=== PATIENT | male | born 1970 | race Caucasian/White ===

== ENCOUNTER → 2021-11-25 09:58 | Outpatient (CLI) | payer BC, SELFPAY ==
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
== END ==
PROVIDERS: PCP Internal Medicine; Visit Provider Internal Medicine
DX: M25.562 Pain in left knee (principal)
CPT/HCPCS: 73562

== ENCOUNTER → 2021-12-07 08:37 | Outpatient (CLI) | payer BC, SELFPAY ==
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
--- NOTE | 2021-12-07 08:42 | XR_ITS ---
FINAL REPORT CLINICAL HISTORY: RULE OUT METAL FOREIGN BODY FOR MRI. rule out metal foreign body. prior hx metal in left eye. FINDINGS: BILATERAL ORBITS: Two views were obtained. There is no acute fracture or dislocation. There is no radiopaque foreign body identified. There is no soft tissue abnormality. IMPRESSION: No acute bony abnormality. No radiopaque foreign body. Reviewed, Interpreted and Dictated by Leo Salinas III, MD Transcribed by Teresa Menendez Authenticated and [facility]
== END ==
PROVIDERS: PCP Internal Medicine; Visit Provider Orthopaedic Surgery
DX: M25.562 Pain in left knee (principal); H05.53 Retained (old) foreign body following penetrating wound of bilateral orbits
CPT/HCPCS: 70200; 73721

== ENCOUNTER → 2021-12-16 09:58 | Outpatient (CLI) | payer BC, SELFPAY ==
[2021-12-16 10:34] LABS: Basophils # 0.1 K/mm3 (0-0.2); Basophils % 1.9 % (0.1-2.0); Eosinophils # 0.2 K/mm3 (0.0-0.4); Eosinophils % 3.2 % (0.1-12.0); Hemoglobin 14.7 g/dL (14.1-18.0); Lymphocytes # 1.6 K/mm3 (0.7-4.5); Lymphocytes % 22.3 % (10-50); Mean Corpuscular HGB Conc 31.3 g/dL (31.8-35.4); Mean Corpuscular Hemoglobin 30.8 pg (27.0-31.2); Mean Corpuscular Volume 98.5 fl (80-94); Mean Platelet Volume 7.3 fl (7.4-10.4); Monocytes # 0.6 K/mm3 (0.1-1.0); Monocytes % 8.3 % (1.7-9.3); Neutrophils # 4.7 K/mm3 (1.8-7.8); Neutrophils % 64.2 % (37.0-80.0); Platelet Count 371 K/mm3 (142-424); Red Blood Count 4.78 M/mm3 (4.60-6.20); White Blood Count 7.3 K/mm3 (4.8-10.8)
[2021-12-16 11:04] LABS: Alanine Aminotransferase 39 U/L (12-78); Albumin Level 4.3 g/dl (3.5-5.0); Albumin/Globulin Ratio 1.7 (1.1-1.8); Alkaline Phosphatase 59 U/L (38-126); Aspartate Amino Transferase 34 U/L (17-59); Blood Urea Nitrogen 12 mg/dl (9-20); Calcium 9.3 mg/dl (8.4-10.2); Carbon Dioxide 27 mmol/L (22.0-30.0); Chloride 105 mmol/L (98-107); Estimated Glomerular Filt Rate 64 ml/min (>60); GFR (African American) 77 ML/MIN (>60); Globulin 2.5 g/dL (1.3-3.2); Glucose 116 mg/dl (74-100); Sodium 140 mmol/L (136-145); Total Protein,Serum 6.8 g/dl (6.3-8.2)
[2021-12-16 11:08] LABS: Bilirubin,Total < 0.1 mg/dl (0.2-1.3)
== END ==
PROVIDERS: PCP Internal Medicine; Visit Provider Orthopaedic Surgery
DX: S83.232A Complex tear of medial meniscus, current injury, left knee, initial encounter (principal)
CPT/HCPCS: 36415; 80053; 85025

== ENCOUNTER → 2021-12-18 16:30 | Outpatient (CLI) | payer BC, SELFPAY ==
--- NOTE | 2021-12-18 16:38 | ECG_ITS ---
APPROVED REPORT Exam: Resting ECG HR:59 bpm ECG Measurements Heart Rate 59 AXES VA 140 P 59 QRSd 89 QRS 47 QT 419 T 66 QTc 419 Conclusion SINUS BRADYCARDIA WITH SINUS ARRHYTHMIA NONSPECIFIC T-WAVE ABNORMALITY BORDERLINE ECG UNCONFIRMED REPORT Electronically signed by : Pepito Rasmussen MD 12/21/2021 14:07:58
--- NOTE | 2021-12-18 16:45 | XR_ITS ---
PROCEDURE INFORMATION: Exam: XR Chest Exam date and time: 12/18/2021 4:46 PM Age: 51 years old Clinical indication: Cough TECHNIQUE: Imaging protocol: Radiologic exam of the chest. Views: 2 views. COMPARISON: No relevant prior studies available. FINDINGS: Lungs: Subcentimeter calcific density overlies the left lung base on the frontal view appearing to be within the lower lobe on the lateral projection and is compatible with a benign calcified granuloma. Pleural spaces: Unremarkable. No pleural effusion. No pneumothorax. Heart/Mediastinum: Unremarkable. No cardiomegaly. Bones/joints: Degenerative spondylosis of thoracic spine. IMPRESSION: 1. No evidence of acute cardiopulmonary process. 2. Small calcified granuloma left lower lobe. 3. Degenerative changes of thoracic spine
== END ==
PROVIDERS: PCP Internal Medicine; Visit Provider Orthopaedic Surgery
DX: S83.232A Complex tear of medial meniscus, current injury, left knee, initial encounter (principal)
CPT/HCPCS: 71046; 93005

== ENCOUNTER → 2021-12-20 13:40 | Outpatient (CLI) | payer BC, SELFPAY | PROVIDERS: PCP Internal Medicine; Visit Provider Orthopaedic Surgery | DX: Z01.812 Encounter for preprocedural laboratory examination (principal); Z20.822 Contact with and (suspected) exposure to COVID-19; S83.232A Complex tear of medial meniscus, current injury, left knee, initial encounter | CPT/HCPCS: C9803; U0003; U0005 ==

== ENCOUNTER → 2021-12-24 17:44 | Outpatient (CLI) | payer BC, SELFPAY ==
[2021-12-25 07:57] LABS: Coronavirus 19, PCR Not Detected (NotDetected); Influenza A, PCR Not Detected (NotDetected); Influenza B, PCR Not Detected (NotDetected)
== END ==
PROVIDERS: PCP Internal Medicine; Visit Provider Orthopaedic Surgery
DX: Z01.812 Encounter for preprocedural laboratory examination (principal); Z20.822 Contact with and (suspected) exposure to COVID-19; M25.562 Pain in left knee
CPT/HCPCS: C9803; U0003; U0005

== ENCOUNTER 2021-12-25 10:46 | Day surgery (SDC) | payer BC, SELFPAY ==
[2021-12-24 10:08] VITALS: BMI 30.7
[2021-12-25] VITALS (7 sets, daily range): BP systolic 109–128; BP diastolic 72–92; PULSE 64–94; RESP 16–18; TEMP 36.2–36.8; O2SAT 94–98
--- NOTE | 2021-12-25 13:33 | HMH.OPNOTE ---
Date of procedure: 12/25/21 Pre-op Diagnosis:: Left knee medial meniscus tear Post-op Diagnosis:: Left knee medial meniscus tear Procedure performed:: Left knee arthroscopy with partial medial meniscectomy Surgeon:: Gama Trejo MD Anesthesia: GETA, local Estimated blood loss (mL): 5 Clinical Note:: Daniel is a very pleasant 51-year-old male who has struggled with left knee pain over the past few months. MRI revealed complex tear with horizontal cleavage component posterior horn and body of the medial meniscus. He has failed conservative treatment measures. We discussed all the risks, benefits and alternatives to left knee arthroscopy for partial medial meniscectomy and he agreed to proceed. Surgical consent form was signed. Operative findings:: Left knee complex tear posterior horn and body of the medial meniscus. Mild chondromalacia of the central aspect of the patella, medial femoral condyle and lateral tibial plateau. Cruciate ligaments intact. Lateral meniscus intact. Operative note:: Daniel was seen in the preoperative holding area. The left knee was marked to confirm the correct operative site. He received Ancef 2 g IV prophylactic antibiotics within 1 hour of incision time. He was brought back to the OR. General anesthesia was induced. Nonsterile tourniquet applied to the left thigh but was not inflated. Left lower extremity prepped and draped in the usual sterile fashion. Timeout performed to confirm left knee arthroscopy on patient Daniel Sullivan. I made an anterior lateral viewing portal with an 11 blade scalpel. Arthroscope was introduced into the knee joint. I then made an anteromedial portal localizing this with a spinal needle. This incision was made with the 11 blade scalpel as well. Dilated with a trocar. Diagnostic arthroscopy commenced. He had a small area of grade II chondromalacia central aspect of the patella. This was cleaned up with a 3.5 resector shaver back to a smooth stable border. Cruciate ligaments were seen to be intact. I placed his thigh on the lateral post and entered the medial compartment of the knee. He was seen to have a complex tear posterior horn and body of the medial meniscus with horizontal cleavage component as well as an unstable flap at the junction of the posterior horn and body of the medial meniscus. This was treated with a partial medial meniscectomy with a 3.5 resector shaver. I removed the unstable inferior flap and approximately the inner third of the posterior horn of the medial meniscus with a smooth transition to intact body the medial meniscus. There was also some mild grade II chondromalacia of the central aspect of the medial femoral condyle that was cleaned up as well with a shaver. No full-thickness cartilage loss. He was placed in the [id number] position. There was minimal fraying of the inner edge of the lateral meniscus that was debrided. No significant lateral meniscus tear. Very mild chondromalacia of the lateral tibial plateau. At this time arthroscopy instruments were removed from the joint. Fluid suctioned and drained from the joint. Portals were closed with 4-0 Monocryl subcuticular stitches. I injected 20 cc of 0.5% Naropin from the superolateral approach for local anesthetic. Sterile dressing was applied with Steri-Strips, 4 x 4's, ABD, soft roll and a 6 inch Lewis bandage. Anesthesia was reversed without difficulty and he was transferred to the recovery room in stable condition. All sponge and needle counts correct x2. Postoperative plan: He will be discharged home from recovery. Polar pack to the left knee and crutches for assist with ambulation as needed. Oxycodone and enteric-coated aspirin prescribed to his pharmacy. We will see him back in the office on 01/13 for his first postoperative check. Tourniquet time (min): 0 Condition: stable Disposition: PACU Specimens:: None Complications:: None
== END 2021-12-25 15:10 | disposition home or self-care (01) ==
PROVIDERS: PCP Internal Medicine; Visit Provider Orthopaedic Surgery
PROC: (CPT 29870; principal; 2021-12-25 12:00)
DX: M25.562 Pain in left knee (principal); M23.92 Unspecified internal derangement of left knee; S83.232A Complex tear of medial meniscus, current injury, left knee, initial encounter; M22.42 Chondromalacia patellae, left knee
CPT/HCPCS: 29881; 96374; C9803; J2405; U0003; U0005

== ENCOUNTER 2022-07-09 14:33 | Emergency (ER) | payer OTHER, SELFPAY ==
[2022-07-09 14:34] VITALS: BP 125/74; PULSE 87; RESP 17; TEMP 36.6; O2SAT 97; BMI 28.1
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
--- NOTE | 2022-07-09 15:46 | PC.NURSE ---
pt going to rad
[2022-07-09 16:04] VITALS: BP 127/91; PULSE 87; RESP 17; O2SAT 96
[2022-07-09 16:29] VITALS: BP 132/78; PULSE 72; RESP 17; TEMP 36.8; O2SAT 98
== END 2022-07-09 17:09 | disposition home or self-care (01) ==
PROVIDERS: Emergency Provider Emergency Medicine; PCP Internal Medicine
DX: S16.1XXA Strain of muscle, fascia and tendon at neck level, initial encounter (principal); M79.604 Pain in right leg; M25.561 Pain in right knee; V49.50XA Passenger injured in collision with unspecified motor vehicles in traffic accident, initial encounter; Y99.0 Civilian activity done for income or pay
CPT/HCPCS: 72040; 73562; 99284

== ENCOUNTER 2023-12-26 11:58 | Outpatient (RCR) | payer BC, SELFPAY | END 2023-12-26 23:59 | disposition home or self-care (01) | LOC: PT 11:58 | PROVIDERS: Visit Provider Physician Assistant | DX: M23.52 Chronic instability of knee, left knee (principal) | CPT/HCPCS: 97760 ==